=== PATIENT | female | born 1970 | race Two or more races ===

== ENCOUNTER 2017-12-29 09:12 | Emergency (ER) | payer MEDICAID ==
[2017-12-29] MEDS ORDERED: FLUCONAZOLE 100 MG TAB PO (10:15)
[2017-12-29] MEDS: NORCO, ANEXSIA 5/325MG TABLET (HYDROcodone/ACETAMINOPHEN) PO (10:21)
== END 2017-12-29 10:25 | disposition home or self-care (01) ==
LOC: M ED 09:12
DX: S30.0XXA Contusion of lower back and pelvis, initial encounter (principal); W01.0XXA Fall on same level from slipping, tripping and stumbling without subsequent striking against object, initial encounter; Y92.099 Unspecified place in other non-institutional residence as the place of occurrence of the external cause; Y93.9 Activity, unspecified; G89.29 Other chronic pain; M54.5 Low back pain
CPT/HCPCS: 99282

== ENCOUNTER → 2018-01-05 | Outpatient (CLI) | payer MEDICAID | LOC: M LRY 17:32 | DX: S39.92XA Unspecified injury of lower back, initial encounter (principal); M51.37 Other intervertebral disc degeneration, lumbosacral region; X58.XXXA Exposure to other specified factors, initial encounter; Y92.9 Unspecified place or not applicable ==

== ENCOUNTER 2018-02-23 20:24 | Emergency (ER) | payer OTHER, MEDICAID ==
[2018-02-23] MEDS: CYCLOBENZAPRINE 10 MG TAB PO (23:30)
[2018-02-23] MEDS: KETOROLAC 60 MG/2 ML VIAL (J1885) IM (23:30)
== END 2018-02-23 23:45 | disposition home or self-care (01) ==
LOC: M ED 20:24
DX: G89.29 Other chronic pain (principal); M54.5 Low back pain; M62.830 Muscle spasm of back
CPT/HCPCS: J1885

== ENCOUNTER 2018-03-15 16:39 | Emergency (ER) | payer OTHER ==
[2018-03-15] MEDS: KETOROLAC 60 MG/2 ML VIAL (J1885) IM (17:07)
== END 2018-03-15 17:56 | disposition home or self-care (01) ==
LOC: M ED 16:39
DX: S30.0XXA Contusion of lower back and pelvis, initial encounter (principal); W19.XXXA Unspecified fall, initial encounter; Y92.9 Unspecified place or not applicable; Y93.9 Activity, unspecified; Y99.9 Unspecified external cause status; G89.29 Other chronic pain; M54.9 Dorsalgia, unspecified; F17.200 Nicotine dependence, unspecified, uncomplicated
CPT/HCPCS: J1885